=== PATIENT | male | born 2000 | race Caucasian/White ===

== ENCOUNTER 2022-02-10 11:33 | Emergency (ER) | payer BC ==
[2022-02-10] MEDS ORDERED: SODIUM CHLORIDE 0.9% 500 ML 500 ML IV STA (12:45)
--- NOTE | 2022-02-10 12:52 | ED ---
General Adult HPI - General Source: patient, RN notes reviewed Mode of arrival: ambulatory Limitations: no limitations <Kael Flores - Last Filed: 02/10/22 15:37> <Lacey Valle - Last Filed: 02/11/22 20:02> - General Chief complaint: GI Bleed Stated complaint: GI bleed Time Seen by Provider: 02/10/22 12:21 - History of Present Illness Initial comments: 21-year-old male presents emergency Department with chief complaint of abdominal pain, rectal bleeding. Patient states he's had bloody stools last several days. Patient states she's had this in the past was told may be just had a fissure. Patient states he does have a history of hemorrhoids but has no rectal pain. He states his abdominal pain especially with certain foods. Patient denies any chest pain shortness breath headache dizziness or dysuria no hematuria denies any current medications has not seen GI. Patient states that his grandparents h ad ulcers no other family history of GI disorders. (Kael Flores) - Related Data Previous Rx's Medication Instructions Recorded Levofloxacin [Levaquin] 500 mg PO DAILY #7 tab 02/10/22 metroNIDAZOLE [Flagyl] 500 mg PO TID #21 tab 02/10/22 Allergies Allergy/AdvReac Type Severity Reaction Status Date / Time No Known Allergies Allergy Verified 02/10/22 14:00 Review of Systems ROS Other: All systems not noted in ROS Statement are negative. <Kael Flores - Last Filed: 02/10/22 15:37> ROS Other: All systems not noted in ROS Statement are negative. <Lacey Valle - Last Filed: 02/11/22 20:02> ROS Statement: Those systems with pertinent positive or pertinent negative responses have been documented in the HPI. Past Medical History Past Medical History: No Reported History History of Any Multi-Drug Resistant Organisms: None Reported Past Surgical History: No Surgical Hx Reported Past Psychological History: No Psychological Hx Reported Smoking Status: Never smoker Past Alcohol Use History: None Reported Past Drug Use History: None Reported <Kael Flores - Last Filed: 02/10/22 15:37> General Exam Limitations: no limitations General appearance: alert, in no apparent distress Head exam: Present: atraumatic, normocephalic, normal inspection Eye exam: Present: normal appearance, PERRL, EOMI. Absent: scleral icterus, conjunctival injection, periorbital swelling ENT exam: Present: normal exam, normal oropharynx, mucous membranes moist Neck exam: Present: normal inspection. Absent: tenderness, meningismus, lymphadenopathy Respiratory exam: Present: normal lung sounds bilaterally. Absent: respiratory distress, wheezes, rales, rhonchi, stridor Cardiovascular Exam: Present: regular rate, normal rhythm, normal heart sounds. Absent: systolic murmur, diastolic murmur, rubs, gallop, clicks GI/Abdominal exam: Present: soft, tenderness, normal bowel sounds. Absent: distended, guarding, rebound, rigid Neurological exam: Present: alert, oriented X3 Skin exam: Present: warm, dry, intact, normal color. Absent: rash <Kael Flores - Last Filed: 02/10/22 15:37> Course Vital Signs 02/10/22 02/10/22 11:48 15:58 Temperature 98.4 F 98.1 F Pulse Rate 100 98 Respiratory 20 18 Rate Blood Pressure 151/93 134/74 O2 Sat by Pulse 99 100 Oximetry Medical Decision Making - Lab Data Result diagrams: 02/10/22 13:35 02/10/22 12:50 <Kael Flores - Last Filed: 02/10/22 15:37> - Lab Data Result diagrams: 02/10/22 13:35 02/10/22 12:50 <Lacey Valle - Last Filed: 02/11/22 20:02> - Medical Decision Making 21-year-old male present emergency from for abdominal pain, possible rectal bleeding. Hemoglobin is 9.8, CT shows possible appendicitis though patient has no fever, no leukocytosis. I discussed the case with Dr. Estrada in which he feels this is less likely to be appendicitis though he does recommend the patient be placed on Levaquin, Flagyl uses see Dr. Norman in office on and is to return the emergency department for any worsening changes symptoms. (Kael Flores) - Lab Data Lab Results 02/10/22 02/10/22 02/10/22 Range/Units 12:50 12:50 13:35 WBC 7.3 (3.8-10.6) k/uL RBC 4.18 L (4.30-5.90) m/uL Hgb 9.8 L (13.0-17.5) gm/dL Hct 32.3 L (39.0-53.0) % MCV 77.3 L (80.0-100.0) fL MCH 23.4 L (25.0-35.0) pg MCHC 30.2 L (31.0-37.0) g/dL RDW 15.1 (11.5-15.5) % Plt Count 285 (150-450) k/uL MPV 7.7 Neutrophils % 75 % Lymphocytes % 15 % Monocytes % 5 % Eosinophils % 1 % Basophils % 0 % Neutrophils # 5.5 (1.3-7.7) k/uL Lymphocytes # 1.1 (1.0-4.8) k/uL Monocytes # 0.4 (0-1.0) k/uL Eosinophils # 0.0 (0-0.7) k/uL Basophils # 0.0 (0-0.2) k/uL Hypochromasia Slight Microcytosis Slight Sodium 138 (137-145) mmol/L Potassium 5.0 (3.5-5.1) mmol/L Chloride 103 (98-107) mmol/L Carbon Dioxide 22 (22-30) mmol/L Anion Gap 13 mmol/L BUN 12 (9-20) mg/dL Creatinine 0.81 (0.66-1.25) mg/dL Est GFR (CKD-EPI)AfAm >90 (>60 ml/min/1.73 sqM) Est GFR (CKD-EPI)NonAf >90 (>60 ml/min/1.73 sqM) Glucose 90 (74-99) mg/dL Plasma Lactic Acid Emanuel 1.0 (0.7-2.0) mmol/L Calcium 9.5 (8.4-10.2) mg/dL Total Bilirubin 1.1 (0.2-1.3) mg/dL AST 49 (17-59) U/L ALT 24 (4-49) U/L Alkaline Phosphatase 118 (38-126) U/L Total Protein 9.2 H (6.3-8.2) g/dL Albumin 4.7 (3.5-5.0) g/dL Amylase 95 (30-110) U/L Lipase 92 (23-300) U/L Disposition Is patient prescribed a controlled substance at d/c from ED?: No Time of Disposition: 15:40 <Kael Flores M - Last Filed: 02/10/22 15:37> <Lacey Valle - Last Filed: 02/11/22 20:02> Clinical Impression: Abdominal pain, Anemia Disposition: HOME SELF-CARE Condition: Stable Instructions (If sedation given, give patient instructions): Abdominal Pain (ED) Additional Instructions: Please follow-up with Dr. Norman in office on .Please return to the Emergency Department if symptoms worsen or any other concerns. Prescriptions: metroNIDAZOLE [Flagyl] 500 mg PO TID #21 tab Levofloxacin [Levaquin] 500 mg PO DAILY #7 tab Referrals: Chava Asher MD [Primary Care Provider] - 1-2 days Gulshan Norman MD [STAFF PHYSICIAN] - 1-2 days
[2022-02-10] MEDS: PANTOPRAZOLE 40 MG/10 ML VIAL IVP STA ×2 (13:13→13:14)
[2022-02-10 13:50] LABS: ALT 24 U/L (4-49); African American GFR (CKD) >90 (>60 ml/min/1.73 sqM); Amylase 95 U/L (30-110); Anion Gap 13 mmol/L; Blood Urea Nitrogen 12 mg/dL (9-20); Calcium 9.5 mg/dL (8.4-10.2); Carbon Dioxide 22 mmol/L (22-30); Chloride 103 mmol/L (98-107); Glucose 90 mg/dL (74-99); Lipase 92 U/L (23-300); Non-African American GFR(CKD) >90 (>60 ml/min/1.73 sqM); Sodium 138 mmol/L (137-145)
[2022-02-10 13:52] LABS: AST 49 U/L (17-59); Albumin 4.7 g/dL (3.5-5.0); Alkaline Phosphatase 118 U/L (38-126); Total Bilirubin 1.1 mg/dL (0.2-1.3); Total Protein 9.2 g/dL (6.3-8.2)
[2022-02-10 14:08] LABS: Basophils % (A) 0 %; Eosinophils % (A) 1 %; HCT 32.3 % (39.0-53.0); HGB 9.8 gm/dL (13.0-17.5); Hypochromasia Slight; Lymphocytes # (A) 1.1 k/uL (1.0-4.8); Lymphocytes % (A) 15 %; MCH 23.4 pg (25.0-35.0); MCHC 30.2 g/dL (31.0-37.0); MCV 77.3 fL (80.0-100.0); Mean Platelet Volume 7.7; Microcytosis Slight; Monocytes # (A) 0.4 k/uL (0-1.0); Monocytes % (A) 5 %; Neutrophils # (A) 5.5 k/uL (1.3-7.7); Neutrophils % (A) 75 %; Platelet Count 285 k/uL (150-450); RBC 4.18 m/uL (4.30-5.90); RDW 15.1 % (11.5-15.5); WBC 7.3 k/uL (3.8-10.6)
--- NOTE | 2022-02-10 15:15 | CT ---
EXAMINATION TYPE: CT abdomen pelvis w con DATE OF EXAM: 02/10/2022 COMPARISON: None HISTORY: Abdominal pain CT DLP: 548.2 mGycm CONTRAST: CT scan of the abdomen and pelvis is performed without Oral Contrast and with IV Contrast, patient in jected with 100 ml mL of Isovue 300. FINDINGS: LUNG BASES-: No visible nodule. No infiltrate. LIVER/GB: No calcified gallstones. No space occupying hepatic lesion. Biliary tree is of normal ca liber. PANCREAS: No inflammation. No distinct mass. SPLEEN: No splenic enlargement. No lesion seen. ADRENALS: No nodule. No thickening. KIDNEYS/BLADDER: No hydronephrosis. Nonobstructing 1.5 mm calculus mid pole right kidney. No distinc t renal mass. Urinary bladder grossly unremarkable. BOWEL: Thickened and dilated appendix at 9 mm inflammatory change. There is associated cecal wall thi ckening. A few mildly prominent lymph nodes were quadrant small bowel mesentery. No evidence for free air or abscess. Normal bowel caliber. GENITAL ORGANS: No gross abnormality. LYMPH NODES: No greater than 1cm abdominal or pelvic lymph nodes are appreciated. AORTA: No significant abnormality. OSSEOUS STRUCTURES: No significant abnormality is seen. OTHER: No significant additional abnormality is seen. IMPRESSION: 1. Findings felt to reflect mild acute appendicitis.
[2022-02-10] MEDS ORDERED: LEVOFLOXACIN 500 MG TAB PO STA (15:46)
[2022-02-10] MEDS ORDERED: metroNIDAZOLE 500 MG TAB PO STA (15:46)
[2022-02-10 16:00] VITALS: BP 134/74; PULSE 98; RESP 18; TEMP 98.1
== END 2022-02-10 16:02 | disposition home or self-care (01) ==
LOC: EC 11:33
DX: R10.9 Unspecified abdominal pain (principal); D64.9 Anemia, unspecified
CPT/HCPCS: 36415; 80053; 82150; 83605; 83690; 85025; 74177; 99285; 96374; C9113; Q9967

== ENCOUNTER 2022-03-05 09:23 | Day surgery (SDC) | payer BC ==
[2022-03-03 10:18] VITALS: BMI 22.4
[2022-03-05] MEDS ORDERED: LIDOCAINE 1% (10MG/ML) FOR IV START INTRADERMA PRN (09:34)
[2022-03-05] MEDS ORDERED: LACTATED RINGERS 1,000 ML IV SCH (09:34)
[2022-03-05] MEDS ORDERED: ONDANSETRON 4 MG/2 ML VIAL IVP PRN (09:34)
[2022-03-05 10:01] VITALS: RESP 16; TEMP 97.3
[2022-03-05] MEDS ORDERED: LIDOCAINE 2% INJ 20 MG/ML (2 ML VIAL) ONE (10:28)
[2022-03-05] MEDS ORDERED: PROPOFOL 10 MG/ML 20 ML VIAL IV ONE (10:28)
--- NOTE | 2022-03-05 10:43 | P.OP ---
Date of Procedure: 03/05/22 Preoperative Diagnosis: GI bleed History of chronic appendicitis Postoperative Diagnosis: Internal hemorrhoids Procedure(s) Performed: Colonoscopy Anesthesia: MAC Surgeon: Gulshan Norman Pathology: none sent Condition: stable Disposition: PACU Description of Procedure: The patient's placed on the endoscopy table in the lateral position. He received IV sedation. Digital rectal exam was performed. Internal hemorrhoids are noted. The flexible colonoscope was then placed patient anus and passed throughout the entire colon. The was canal scissors. The cecum, ascending and transverse colon appeared normal. In the descending and sigmoid colon there were no polyps seen there is no diverticula seen the scope was brought back the rectum this appeared normal. Scope withdrawn for patient. Internal hemorrhoids are noted. Presumed patient had GI bleed from internal hemorrhoids. the patient will be scheduled for outpatient interval appendectomy after being seen in the office.
[2022-03-05 11:03] VITALS: BP 119/67; PULSE 82
== END 2022-03-05 11:36 | disposition home or self-care (01) ==
LOC: ORWHC2ENDO 09:23
PROVIDERS: ATTEND Surgery
DX: K64.8 Other hemorrhoids (principal); Z87.19 Personal history of other diseases of the digestive system; Z87.891 Personal history of nicotine dependence; D64.9 Anemia, unspecified; Z98.890 Other specified postprocedural states; Z79.2 Long term (current) use of antibiotics; Z79.899 Other long term (current) drug therapy
CPT/HCPCS: 45378; J2704; J2001